=== PATIENT | male | born 1970 | race Caucasian/White ===

== ENCOUNTER 2017-11-01 02:55 | Emergency (ER) | payer OTHER ==
[2017-11-01 03:03] VITALS: BP 140/92; PULSE 64; RESP 18; TEMP 98.1
[2017-11-01] MEDS ORDERED: ACETAMINOPHEN TAB 325 MG TAB PO STA (03:10)
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
== END 2017-11-01 03:44 | disposition home or self-care (01) ==
LOC: EC 02:55
DX: T23.042A Burn of unspecified degree of multiple left fingers (nail), including thumb, initial encounter (principal); F17.200 Nicotine dependence, unspecified, uncomplicated; X19.XXXA Contact with other heat and hot substances, initial encounter; Y93.89 Activity, other specified; Y92.69 Other specified industrial and construction area as the place of occurrence of the external cause; Y99.0 Civilian activity done for income or pay
CPT/HCPCS: 16000; 99283

== ENCOUNTER → 2018-12-30 | Outpatient (CLI) | payer OTHER ==
--- NOTE | 2019-01-01 23:32 | US ---
EXAMINATION TYPE: US thyroid st tissue head/neck DATE OF EXAM: 12/30/2018 COMPARISON: NONE CLINICAL HISTORY: 48-year-old male R53.83 Fatigue, E05.00 Graves disease. Pt states diagnosed with [address]'s Disease 4 years ago/ Currently not on thyroid meds TECHNIQUE: Multiple sonographic images of the thyroid gland are obtained. FINDINGS: GLAND SIZE: Right Lobe: 4.9 x 1.7 x 2.2 cm Overall Parenchyma: heterogenous Left Lobe: 4.9 x 1.7 x 2.0 cm Overall Parenchyma: heterogeneous Isthmus Thickness: 0.2 cm NODULES RIGHT: # of nodules measured on right: Numerous subcentimeter nodules with the largest colon 1. 0.5 X 0.4 x 0.5 cm hypoechoic solid nodule at the mid pole with well-defined margins; This nodu le is wider than tall and shows intranodular vascularity. Prior size: No prior LEFT: # of nodules measured on left: Numerous subcentimeter nodules with the largest: 1. 0.6 X 0.5 x 0.7 cm hypoechoic solid nodule at the mid pole with irregular margins;. This nodule is wider than tall and shows intranodular vascularity. Prior size: No prior Bilateral neck scanned, no evidence of lymphadenopathy. Roller notes: Heterogeneous thyroid bilaterally with innumerable sub-centimeter nodules bilatera lly, largest on each lobe measured. IMPRESSION: 1. Borderline thyromegaly with multiple subcentimeter nodules (largest 7 mm), possible multinodular g oiter. 2. Heterogeneous glandular parenchyma may be in keeping with diffuse thyroiditis.
== END | disposition home or self-care (01) ==
LOC: RADUSWWP 15:33
PROVIDERS: ATTEND Family Medicine
DX: E04.2 Nontoxic multinodular goiter (principal)
CPT/HCPCS: 76536

== ENCOUNTER → 2019-02-22 | Outpatient (CLI) | payer OTHER ==
--- NOTE | 2019-02-23 10:03 | NM ---
EXAMINATION TYPE: NM thyroid image w uptake DATE OF EXAM: 02/23/2019 COMPARISON: Prior ultrasound 12/30/2018 HISTORY: Abnormal thyroid function tests, swelling, mass, lump in neck TECHNIQUE: Thyroid iodine uptake is calculated and images performed after the oral administration of 315 uCi 1-123 Capsule. FINDINGS: There is abnormal distribution of activity throughout the gland. Heterogeneity is present b ilaterally in keeping with patient's thyroid, possible underlying Duran's thyroiditis or multinod ular goiter. The 5 hour iodine uptake is calculated at 15.5% (normal range at 4 hours 8-14%). The 24- hour iodine uptake is calculated at 28.9% (normal range 15-35%). IMPRESSION: Findings compatible with underlying Duran's thyroiditis or multinodular goiter.
== END | disposition home or self-care (01) ==
LOC: RADNMMAIN 08:49
PROVIDERS: ATTEND Family Medicine
DX: R94.6 Abnormal results of thyroid function studies (principal)
CPT/HCPCS: 78014; A9516

== ENCOUNTER → 2023-12-15 | Outpatient (CLI) | payer BC ==
--- NOTE | 2023-12-15 11:37 | MR ---
EXAMINATION TYPE: MR knee RT wo con DATE OF EXAM: 12/15/2023 COMPARISON: X-ray 12/02/2023 HISTORY: No prior, right knee pain swelling for 3 and a half months TECHNIQUE: Multiplanar, multisequence imaging of the right knee is performed without IV contrast. FINDINGS: MEDIAL MENISCUS: There is a grade 3 signal in posterior horn of the medial meniscus compatible with t ear. LATERAL MENISCUS: Anterior and posterior horns are intact without tear. CRUCIATE LIGAMENTS: Anterior cruciate ligaments intact. There is ill-defined increased attenuation wi thin the ACL suggestive of ligamentous sprain, mucoid degeneration or partial intrasubstance tear. COLLATERAL LIGAMENTS: The medial collateral ligament and lateral collateral ligament complex are inta ct and unremarkable. EXTENSOR MECHANISM: Visualized quadriceps and patellar tendons are intact. Small enthesophyte of the anterior margin of the patella. EFFUSION: Small amount of fluid in the suprapatellar bursa. POPLITEAL CYST: No popliteal/freeman cyst. TRICOMPARTMENT SPACES: There is hypertrophic marginal spurring and narrowing of the tricompartmental joint spaces most marked involving the patellofemoral and medial compartment knee joints. No erosive changes. CARTILAGE: There is loss of cartilage involving the patella at multiple locations compatible with gra de III chondromalacia. There is grade III chondromalacia of the femoral and medial articular cartilag e. BONE MARROW SIGNAL: No focal abnormal marrow signal is appreciated. OTHER: There is a large multiloculated cystic structure involving the popliteal fossa measuring 2.6 x 3.5 x 5.6 cm compatible a popliteal fossa cyst. IMPRESSION: 1. 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 2. Posterior horn medial meniscal tear. 3. Large multiloculated popliteal fossa cyst measuring 2.6 x 3.5 x 5.67 cm. 4. Increased intrasubstance signal within the anterior a cruciate ligament suggestive of ACL sprain o r partial intrasubstance tear. Correlate clinically.
== END | disposition home or self-care (01) ==
LOC: RADMRIMAIN 10:44
PROVIDERS: ATTEND Orthopaedic Surgery
DX: S83.241A Other tear of medial meniscus, current injury, right knee, initial encounter (principal); M17.11 Unilateral primary osteoarthritis, right knee

== ENCOUNTER → 2023-12-15 | Outpatient (CLI) | payer BC ==
[2023-12-15 14:54] LABS: Basophils # (A) 0.07 X 10*3/uL (0.00-0.10); Eosinophils # (A) 0.32 X 10*3/uL (0.04-0.35); Eosinophils % (A) 4.7 %; HCT 43.5 % (39.6-50.0); HGB 15.7 g/dL (13.0-17.0); Lymphocytes # (A) 2.14 X 10*3/uL (0.90-5.00); Lymphocytes % (A) 31.8 %; MCH 31.2 pg (27.0-32.0); MCHC 36.1 g/dL (32.0-37.0); MCV 86.5 FL (80.0-97.0); Monocytes # (A) 0.83 X 10*3/uL (0.20-1.00); Monocytes % (A) 12.3 %; NRBC Per 100 WBC 0 X 10*3/uL (0.00-0.01); Neutrophils # (A) 3.36 X 10*3/uL (1.80-7.70); Neutrophils % (A) 49.9 %; Platelet Count 220 X 10*3/uL (140-440); RBC 5.03 X 10*6/uL (4.40-5.60); RDW 13.4 % (11.5-14.5); WBC 6.74 X 10*3/uL (4.50-10.00)
[2023-12-15 15:04] LABS: BUN/Creat Ratio 12.62 Ratio (12.00-20.00); Blood Urea Nitrogen 10.1 mg/dL (9.0-27.0); Calcium 9.5 mg/dL (8.7-10.3); Carbon Dioxide 24.5 mmol/L (21.6-31.8); Chloride 105 mmol/L (96-109); Glucose 87 mg/dL (70-110); Potassium 4.2 mmol/L (3.5-5.5); Sodium 140 mmol/L (135-145)
== END | disposition home or self-care (01) ==
LOC: LABPAT 09:45
PROVIDERS: ATTEND Orthopaedic Surgery
DX: Z01.818 Encounter for other preprocedural examination (principal); M23.91 Unspecified internal derangement of right knee; R00.1 Bradycardia, unspecified
CPT/HCPCS: 36415; 80048; 85025; 93005

== ENCOUNTER 2023-12-31 06:03 | Day surgery (SDC) | payer BC ==
--- NOTE | 2023-12-30 11:37 | P.HPOR ---
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 He notes swelling along with diffuse pain. He feels as though it stuck. He has popping and buckling. He tried therapy without much relief along with medications. He notes it bothers him daily. Review of Systems As per HPI Past Medical History Past Medical History: No Reported History History of Any Multi-Drug Resistant Organisms: None Reported Additional Past Surgical History / Comment(s): Eye surgery as a kid, Past Psychological History: No Psychological Hx Reported Past Alcohol Use History: Occasional Past Drug Use History: None Reported Medications and Allergies Home Medications Medication Instructions Recorded Confirmed Type Acetaminophen-Codeine 300-30mg 1 tab PO Q6H PRN #12 tablet 11/01/17 Rx [Tylenol #3] SILVER sulfADIAZINE Cream 1 applic TOPICAL BID #25 gram 11/01/17 Rx [Silvadene 1% Cream] Allergies Allergy/AdvReac Type Severity Reaction Status Date / Time No Known Allergies Allergy Verified 11/01/17 03:04 Physical Examination - Knee right Appearance: effusion Effusion grade: grade 1 Tenderness with palpation: anterior, medial ROM: extension: -5 degrees ROM: flexion: 75 degrees Crepitus with motion: Yes Strength: extension: 5/5 Strength: flexion: 5/5 Meniscal tests: medial meniscal tests: positive, medial joint line pain: positive Results Patient is a well-developed well-nourished male approximately 5 foot 11, 247 pounds of and amorphus habitus. HEENT exam is nonfocal, neck is supple. He has painless passive motion of the right hip. Straight leg raise negative. He is tender about the right knee medial joint line. Collaterals are stable, Telma was negative, Adela's elicits medial pain. He has an antalgic gait pattern. His distal neurovascular appears intact in the right lower extremity. - Diagnostic results Knee x-ray: image reviewed (MRI of the right knee is reviewed and shows evidence of a posterior medial meniscal tear along with medial compartment degenerative changes.) Assessment and Plan Assessment: Right knee internal derangementsymptomatic medial meniscal tear Plan: I talked to the patient at length regarding his condition along with treatment options. At this point he is quite symptomatic having pain and mechanical symptoms despite attempted conservative measures. After a thorough discussion he opts to proceed with surgery. We'll plan to proceed with right knee arthroscopy with probable partial medial meniscectomy. Risks and benefits were discussed at length in layman's terms. We will perform that as an outpatient procedure.
[2023-12-31] MEDS: LACTATED RINGERS 1,000 ML IV ONE (06:35)
[2023-12-31] MEDS: ONDANSETRON 4 MG/2 ML VIAL IVP PRN (07:17)
[2023-12-31] MEDS: DEXAMETHASONE SOD PHOSPHATE 4 MG/ML 1 ML VIAL IVP STA (07:19)
[2023-12-31] MEDS ORDERED: KETOROLAC 15 MG/ML 1 ML VIAL ONE (07:25)
[2023-12-31] MEDS ORDERED: PROPOFOL 10 MG/ML 20 ML VIAL IV ONE (07:25)
[2023-12-31] MEDS ORDERED: LIDOCAINE 1% INJ 10MG/ML (20 ML MDV) ONE (07:25)
[2023-12-31] MEDS ORDERED: HYDROmorphone (PF) 1 MG/ML ONE (07:25)
[2023-12-31] MEDS ORDERED: MIDAZOLAM 2 MG/2 ML VIAL ONE (07:25)
[2023-12-31] MEDS ORDERED: fentaNYL (PF) 50 MCG/ML 2 ML AMP ONE (07:25)
[2023-12-31] MEDS: EPINEPHrine (PF) 1 ML in SODIUM CHLORIDE 0.9% IRRIGATIO 3,000 ML IRRIGATION ONE (07:50)
--- NOTE | 2023-12-31 08:30 | P.OP ---
Date of Procedure: 12/31/23 Preoperative Diagnosis: Right knee internal derangement Postoperative Diagnosis: Right knee posterior medial meniscal tear Procedure(s) Performed: Right knee arthroscopic partial medial meniscectomy Anesthesia: SASHAA Surgeon: Von Martínez Estimated Blood Loss (ml): 10 Pathology: none sent Condition: stable Disposition: PACU Indications for Procedure: The patient is a 53-year-old male who presents with progressive right knee pain and mechanical symptoms despite conservative measures. A discussion of the risks and benefits of operative intervention versus continued conservative measures was made with the patient. He opted to proceed with surgery. Operative risks include infection, neurovascular injury, development of blood clots, possible incomplete resolution of symptoms, possible worsening of symptoms and need for subsequent procedures was discussed. Informed consent was obtained. Operative Findings: As below Description of Procedure: The patient was brought to the operating room, and after induction of general anesthesia examined the right knee. Collaterals were stable, Telma was negative, and posterior drawer was negative. The right lower extremity was prepped and draped in a normal fashion. A superior lateral portal was made through a 3 mm skin incision superior and lateral to the patella. This was used for outflow. A lateral portal was made through a 5 mm vertical skin incision lateral to the patella tendon above the joint line. Diagnostic arthroscopy was performed. On inspection of the medial compartment, an oblique tear involving the posterior horn of the medial meniscus in the whitewhite junction was noted. This was debrided back to stable base with straight baskets and a motorized shaver. The remaining medial meniscus was stable and intact. Grade 2-3 chondral changes were noted diffusely in the medial compartment. On inspection of the notch, the anterior cruciate ligament appeared to be intact. On inspection of the lateral compartment, no significant cartilage or meniscal pathology was noted. On inspection of the patellofemoral articulation, there was grade 2-3 chondral changes involving the lateral patella facet along with the femoral trochlea. The gutters were clear debris. The knee was then thoroughly irrigated. The portals were closed with Steri-Strips. A sterile dressing was applied in addition to a compression stocking. The patient was awoken from general anesthesia and transferred to recovery room in good condition. Blood loss was estimated at 10 mL. No complications were incurred.
[2023-12-31] MEDS: HYDROmorphone 0.5 MG/0.5 ML SYRINGE IVP PRN (08:38)
[2023-12-31 08:42] VITALS: TEMP 96.8
[2023-12-31 09:05] VITALS: RESP 16
[2023-12-31] MEDS: HYDROcodone/APAP 5-325MG 1 EACH TAB PO PRN (09:31)
[2023-12-31] MEDS ORDERED: hydrALAZINE HCL 20 MG/ML 1 ML VIAL IM PRN (09:59)
[2023-12-31] MEDS: hydrALAZINE HCL 20 MG/ML 1 ML VIAL IVP ONE (10:02)
[2023-12-31 10:36] VITALS: BP 155/88; PULSE 62
== END 2023-12-31 10:54 | disposition home or self-care (01) ==
LOC: OR 06:03
PROVIDERS: ATTEND Orthopaedic Surgery
DX: S83.241A Other tear of medial meniscus, current injury, right knee, initial encounter (principal); E03.9 Hypothyroidism, unspecified; F10.90 Alcohol use, unspecified, uncomplicated; F17.210 Nicotine dependence, cigarettes, uncomplicated; Z79.890 Hormone replacement therapy; X58.XXXA Exposure to other specified factors, initial encounter
CPT/HCPCS: 29881; J2250; J0360; J1100; J0690; J2405; J0171; J2001; J3010; J1170 ×2; J1885; J2704